=== PATIENT | male | born 1995 | race African-American/Black ===

== ENCOUNTER 2017-01-31 07:58 | Emergency (ER) | payer MEDICAID ==
[~2017-01-31] VITALS: Ht 172.7 cm; Wt 68.5 kg
[2017-01-31] MEDS ORDERED: KETOROLAC 60MG/2ML VIAL IM ONE (09:45)
[2017-01-31 10:10] VITALS: BP 115/62
== END 2017-01-31 11:04 | disposition home or self-care (01) ==
LOC: ER 09:50
DX: S63.612A Unspecified sprain of right middle finger, initial encounter (principal); I51.9 Heart disease, unspecified; W21.03XA Struck by baseball, initial encounter; Y93.64 Activity, baseball; Y92.39 Other specified sports and athletic area as the place of occurrence of the external cause
CPT/HCPCS: 29130; 73140; 96372; 99284; J1885